=== PATIENT | male | born 1965 | race Two or more races ===

== ENCOUNTER → 2017-12-27 | Day surgery (SDC) | payer MEDICAID ==
[~2017-12-27] MED LIST: BUPIVACAINE 0.5% 30 ML SDV ONE; CISATRACURIUM BESYLATE 20 MG/10 ML VIAL IV ONE; DEXAMETHASONE 4 MG/ML VIAL ONE; GLYCOPYRROLATE 0.2 MG/1 ML VIAL ONE; HEPARIN 10,000 UNIT/10 ML MDV (1,000 UNIT/ML) ONE; HEPARIN 50,000 UNIT/10 ML VIAL ONE; HYDROmorphONE/DILAUDID 2 MG/ML INJ IVP PRN; LABETALOL HCL 5 MG/ML 20 ML MDV IVP PRN; LIDOCAINE 1% 300 MG/30 ML SDV ONE; MIDAZOLAM 2 MG/2 ML VIAL IVP ONE; NALOXONE HCL 0.4 MG/ML INJ IVP PRN; NEOSTIGMINE METHYLSULFATE 5 MG/5 ML SYR ONE; NS 1,000 ML IV ONE; ONDANSETRON 4 MG/2 ML VIAL IVP PRN; ONDANSETRON 4 MG/2 ML VIAL ONE; PAPAVERINE HCL 60 MG/2 ML SDV ONE; PHENYLEPHRINE HCL 100 MCG/ML SYR ONE; PROPOFOL 200 MG/20 ML VIAL ONE; PROPOFOL/EMULSION 500 MG/50 ML BOTTLE IV ONE; PROTAMINE SULFATE 50 MG/5 ML VIAL IVP ONE; THROMBIN (BOVINE) 20,000 UNIT SPRAY TP ONE; THROMBIN (BOVINE) 5,000 UNIT VIAL TP ONE; ceFAZolin 2 GM/DEXTROSE 100 ML IV ONE; ePHEDrine SULFATE 25 MG/5 ML SYR ONE; fentaNYL 100 MCG/2 ML INJ IVP PRN; fentaNYL 100 MCG/2 ML INJ ONE
[2017-12-27 06:19] LABS: PLATELET COUNT 138 10^3/uL (150-400)
--- NOTE | 2017-12-27 07:07 | PDANEPAE ---
ANE History of Present Illness Left hand AV fistula, IJ dialysis catheter ANE Past Medical History - Cardiovascular History Hx Hypertension: Yes Hx Arrhythmias: No Hx Chest Pain: No Hx Coronary Artery / Peripheral Vascular Disease: No Hx CHF / Valvular Disease: No Hx Palpitations: No - Pulmonary History Hx COPD: No Hx Asthma/Reactive Airway Disease: No Hx Recent Upper Respiratory Infection: No Hx Oxygen in Use at Home: No Hx Sleep Apnea: No Sleep Apnea Screening Result - Last Documented: Positive Pulmonary History Comment: RAMON triggers - Neurologic History Hx Cerebrovascular Accident: No Hx Seizures: No Hx Dementia: No Neurologic History Comment: eye neuropathy - Endocrine History Hx Diabetes: Yes Hypothyroid: No Hyperthyroid: No Obesity: no Endocrine History Comment: DM II - Renal History Hx Renal Disorders: Yes Renal History Comment: renal neuropathy - end stage renal disease - Liver History Hx Hepatic Disorders: No - Neurological & Psychiatric Hx Hx Neurological and Psychiatric Disorders: No - Cancer History Hx Cancer: No - Congenital Disorder History Hx Congenital Disorders: No - GI History GERD: no Hx Gastrointestinal Disorders: No - Other Health History Other Health History: pt is legally blind, wears glasses for reading - Chronic Pain History Chronic Pain: No - Surgical History Prior Surgeries: hernia. left eye surgery for neuropathy ANE Review of Systems Review of Systems: - Exercise capacity METS (RN): 4 METS ANE Patient History - Allergies Allergies/Adverse Reactions: No Known Allergies Allergy (Verified 12/25/17 11:06) - Home Medications Home Medications: Atorvastatin Calcium [Lipitor 40 mg (*)] 40 mg PO DAILY 12/25/17 [Last Taken ] Carvedilol [Coreg (*)] 25 mg PO BIDMEAL 12/25/17 [Last Taken 12/27/17] Cholecalciferol Vit D3 [Vitamin D3 (*)] 2,000 units PO DAILY 12/25/17 [Last Taken 12/26/17] Furosemide [Lasix 20 MG (*)] 20 mg PO DAILY 12/25/17 [Last Taken 12/26/17] Losartan Potassium [Cozaar 50 mg (*)] 50 mg PO HS 12/25/17 [Last Taken 12/26/17] Losartan Potassium [Cozaar 50 mg (*)] 100 mg PO DAILY 12/25/17 [Last Taken 12/27 04:00] - NPO status NPO Since - Liquids (Date): 12/27/17 NPO Since - Liquids (Time): 04:00 NPO Since - Solids (Date): 12/26/17 NPO Since - Solids (Time): 18:00 - Anes Hx Anes Hx: post operative nausea - Smoking Hx Smoking Status: Never smoked - Alcohol Use Alcohol Use: None - Family Anes Hx Family Anes Hx: none Family Hx Anesthesia Complications: none ANE Labs/Vital Signs - Labs Result Diagrams: 12/27/17 06:09 12/27/17 06:09 - Vital Signs Blood Pressure: 192/97 Heart Rate: 74 Respiratory Rate: 16 O2 Sat (%): 99 Height: 170.18 cm Weight: 78.471 kg ANE Physical Exam - Airway Neck exam: decreased ROM Mouth exam: poor dentition - Pulmonary Pulmonary: no respiratory distress, no rales or rhonchi - Cardiovascular Cardiovascular: regular rate and rhythym, no murmur, rub, or gallop - ASA Status ASA Status: IV ANE Anesthesia Plan Anesthesia Plan: general endotracheal anesthesia
--- NOTE | 2017-12-27 07:20 | PDHPUP ---
History & Physical Update H&P update statement: This history and physical update is based on an assessment of the patient which was completed after admission or registration (within 24 hours), but prior to the surgery/procedure. H&P update: H&P reviewed & patient examined, no change in patient's condition since H&P completed
--- NOTE | 2017-12-27 10:36 | POSTOPPROG ---
Post Op Note Date of Operation: 12/27/17 Surgeon: Hardik Campbell Ammonia Still Operator: Asya Anesthesiologist: Carlo Anesthesia: GET(General Endotracheal) Pre-op Diagnosis: ESRD Post-op Diagnosis: same Indication: same Procedure: LUE radiocephalic AVF Findings: +thrill Inf/Abcess present in the surg proc area at time of surgery?: No Depth: Superfical (Skin SQ) EBL: Minimal
[2017-12-27 12:50] VITALS: BP 147/86
--- NOTE | 2017-12-27 13:21 | POSTANESTH ---
Post Anesthetic Evaluation Cardiovascular Status: Similar to Pre-Op Cond Respiratory Status: Normal, Stable Level of Consciousness/Mental Status: Can Participate in Eval Pain Control: Adequate, Prn Tx Ordered Nausea/Vomiting Control: Adequate, Prn Tx Ordered Complications Possibly Related to Anesthesia: None Noted (Episode of nausea treated)
--- NOTE | 2017-12-27 13:29 | GOP ---
DATE OF OPERATION: 12/27/2017 SURGEON: Hardik Campbell MD RN CONCURRENT REVIEW: Melida Sky NP. ANESTHESIOLOGIST: Dr. Matos. PREOPERATIVE DIAGNOSIS: Chronic renal failure. POSTOPERATIVE DIAGNOSIS: Chronic renal failure. PROCEDURE PERFORMED: Left arm ultrasound vein mapping and left radiocephalic arteriovenous fistula. FINDINGS: Patient was found to have a good cephalic vein at the distal forearm and wrist, cephalic v ein was open in the upper arm but was somewhat smaller, had a good radial pulse with noncalcified art herlinda. Elected to proceed with a radiocephalic AV fistula even though he is diabetic. DESCRIPTION OF PROCEDURE: The patient was taken to the operating room where he received a satisfacto ry general endotracheal anesthesia by Dr. Matos. He was placed in supine position. The left arm ou tstretched on an arm board, prepped and draped in the usual sterile fashion. A short incision was ma de over the radial artery and dissection extended down through the fascia. The radial artery was dis sected free and controlled with vessel loops. The cephalic vein was then dissected free from underne ath the radial flap and retracted over to the artery. The patient was systemically heparinized. A s fredis-to-side anastomosis was made between the vein and the artery, creating an 8 mm anastomosis. Flow was first established through the AV fistula then back down the hand. The suture line appeared to b e hemostatic. Other hemostasis was obtained in the wound. The heparin was reversed with protamine. The distal vein was then doubly ligated and divided and the AV fistula was in good position without undue kinking or tension. The wound was irrigated and infiltrated with 0.5% Marcaine. Some topical thrombin was placed in the wound and it was closed with some 3-0 Vicryl subcutaneous sutures and a 4- 0 Monocryl subcuticular stitch. He tolerated the procedure well and was taken to recovery room in go od condition. There was minimal blood loss. No complications. Copy requested to: Dr. Lai /[id number]/MODL
--- NOTE | 2017-12-27 13:29 | GOP ---
DATE OF OPERATION: 12/27/2017 SURGEON: Hardik Campbell MD PREOPERATIVE DIAGNOSIS: Chronic renal failure. POSTOPERATIVE DIAGNOSIS: Chronic renal failure. PROCEDURE PERFORMED: Right internal jugular palindrome tunneled catheter. FINDINGS: The patient was found to have good flow and position of the catheter. DESCRIPTION OF PROCEDURE: The patient was taken to the operating room where he received a satisfacto ry general endotracheal anesthesia by Dr. Matos, placed in supine position, prepped and draped in th e usual sterile fashion, was then placed in Trendelenburg using ultrasound guidance. A single stick was made in the right internal jugular vein. A guidewire was introduced, position was confirmed with fluoroscopy. A subcu incision was made on the anterior chest wall and the Palindrome catheter was t unneled up over the clavicle to the insertion site. A series of dilators were passed over the guidew kassandra, and the catheter was then introduced into the right atrium under fluoroscopic control. The cath eter was slightly too long, but was manipulated and repositioned until it was functioning very well w ith no kinks or problems. The catheter was secured to the exit site with 3-0 Prolene sutures. The e ntrance site was closed with a 3-0 Vicryl subcutaneous suture and 3-0 Prolene mattress sutures. Woun ds were infiltrated with 0.5% Marcaine. He tolerated procedure well, was taken to recovery room in good condition. No complications. Copy requested to: Dr. Lai /[id number]/MODL
== END ==
LOC: F2W 05:28 → FSGY 05:28 → UNDOADMOB 05:28 → EDSTATUS 07:15 → UNDODISOB 12:49
PROVIDERS: ATTEND Surgery
DX: N18.5 Chronic kidney disease, stage 5 (principal); E11.22 Type 2 diabetes mellitus with diabetic chronic kidney disease; I12.0 Hypertensive chronic kidney disease with stage 5 chronic kidney disease or end stage renal disease
CPT/HCPCS: C1750; J0690; J1100; J1642; J1644; J2250; J2370; J2405; J2440; J2704; J2710; J2720; J3010

== ENCOUNTER 2018-02-04 11:51 | Day surgery (SDC) | payer MEDICAID ==
[2018-02-04] MEDS ORDERED: ceFAZolin 2 GM/DEXTROSE 100 ML IV ONE (12:25)
[2018-02-04] MEDS ORDERED: NS 1,000 ML IV ONE (12:26)
[2018-02-04] MEDS ORDERED: THROMBIN (BOVINE) 5,000 UNIT VIAL TP ONE (12:56)
[2018-02-04] MEDS ORDERED: BUPIVACAINE 0.5% 30 ML SDV ONE (12:56)
[2018-02-04] MEDS ORDERED: PROTAMINE SULFATE 50 MG/5 ML VIAL IVP ONE (12:56)
[2018-02-04] MEDS ORDERED: PAPAVERINE HCL 60 MG/2 ML SDV ONE (12:57)
[2018-02-04] MEDS ORDERED: LIDOCAINE 1% 300 MG/30 ML SDV ONE (12:57)
[2018-02-04] MEDS ORDERED: ALBUTEROL 3 ML DEYVIAL IH PRN (13:01)
[2018-02-04] MEDS ORDERED: fentaNYL 100 MCG/2 ML INJ IVP PRN (13:01)
[2018-02-04] MEDS ORDERED: NALOXONE HCL 0.4 MG/ML INJ IVP PRN (13:01)
[2018-02-04] MEDS ORDERED: ONDANSETRON 4 MG/2 ML VIAL IVP PRN (13:01)
[2018-02-04] MEDS ORDERED: ACETAMINOPHEN 500 MG TAB PO PRN (13:01)
--- NOTE | 2018-02-04 13:01 | PDANEPAE ---
ANE History of Present Illness L Arm AV Fistula revision ANE Past Medical History - Cardiovascular History Hx Hypertension: Yes Hx Arrhythmias: No Hx Chest Pain: No Hx Coronary Artery / Peripheral Vascular Disease: No Hx CHF / Valvular Disease: No Hx Palpitations: No - Pulmonary History Hx COPD: No Hx Asthma/Reactive Airway Disease: No Hx Recent Upper Respiratory Infection: No Hx Oxygen in Use at Home: No Hx Sleep Apnea: No Sleep Apnea Screening Result - Last Documented: Positive Pulmonary History Comment: RAMON triggers - Neurologic History Hx Cerebrovascular Accident: No Hx Seizures: No Hx Dementia: No Neurologic History Comment: eye neuropathy - Endocrine History Hx Diabetes: Yes Endocrine History Comment: DM II - Renal History Hx Renal Disorders: Yes Renal History Comment: renal neuropathy - end stage renal disease. dialysis m-w - [facility] - Liver History Hx Hepatic Disorders: No - Neurological & Psychiatric Hx Hx Neurological and Psychiatric Disorders: No - Cancer History Hx Cancer: No - Congenital Disorder History Hx Congenital Disorders: No - GI History Hx Gastrointestinal Disorders: No - Other Health History Other Health History: pt is legally blind, wears glasses for reading - Chronic Pain History Chronic Pain: No - Surgical History Prior Surgeries: 12/27/17 RIJ tunneled dialysis cath and Left av fistula with Campbell. hernia. left eye surgery for neuropathy ANE Review of Systems Review of Systems: - Exercise capacity METS (RN): 4 METS ANE Patient History - Allergies Allergies/Adverse Reactions: No Known Allergies Allergy (Verified 02/03/18 15:11) - Home Medications Home Medications: Atorvastatin Calcium [Lipitor 40 mg (*)] 40 mg PO DAILY 12/25/17 [Last Taken 06/19 08:30] Carvedilol [Coreg (*)] 25 mg PO BIDMEAL 12/25/17 [Last Taken 02/04/18 08:30] Cholecalciferol Vit D3 [Vitamin D3 (*)] 2,000 units PO DAILY 12/25/17 [Last Taken 02/03/18] Furosemide [Lasix 20 MG (*)] 20 mg PO DAILY 12/25/17 [Last Taken 02/03/18] Losartan Potassium [Cozaar 50 mg (*)] 50 mg PO HS 12/25/17 [Last Taken 02/03/18] Losartan Potassium [Cozaar 50 mg (*)] 100 mg PO DAILY 12/25/17 [Last Taken 02/04 08:30] - NPO status NPO Since - Liquids (Date): 02/04/18 NPO Since - Liquids (Time): 08:30 NPO Since - Solids (Date): 02/03/18 NPO Since - Solids (Time): 20:30 - Smoking Hx Smoking Status: Never smoked - Family Anes Hx Family Hx Anesthesia Complications: none ANE Labs/Vital Signs - Labs Result Diagrams: 02/04/18 12:25 - Vital Signs Blood Pressure: 171/73 Heart Rate: 72 Respiratory Rate: 18 O2 Sat (%): 99 Height: 170.18 cm Weight: 78.471 kg ANE Physical Exam - Airway Neck exam: FROM Mallampati Score: Class 2 Mouth exam: normal dental/mouth exam - Pulmonary Pulmonary: clear to auscultation - Cardiovascular Cardiovascular: regular rate and rhythym - ASA Status ASA Status: III ANE Anesthesia Plan Anesthesia Plan: GA with mask
[2018-02-04] MEDS ORDERED: PROPOFOL/EMULSION 500 MG/50 ML BOTTLE IV ONE (13:04)
[2018-02-04] MEDS ORDERED: LIDOCAINE 2% 5 ML SDV ONE (13:06)
[2018-02-04] MEDS ORDERED: fentaNYL 100 MCG/2 ML INJ ONE (13:07)
[2018-02-04] MEDS ORDERED: ONDANSETRON 4 MG/2 ML VIAL ONE (13:35)
--- NOTE | 2018-02-04 14:13 | POSTANESTH ---
Post Anesthetic Evaluation Cardiovascular Status: Normal, Stable Respiratory Status: Normal, Stable Level of Consciousness/Mental Status: Can Participate in Eval, Mildly Sleepy, Arousable Pain Control: Adequate, Prn Tx Ordered Nausea/Vomiting Control: Adequate, Prn Tx Ordered Complications Possibly Related to Anesthesia: None Noted
[2018-02-04 15:15] VITALS: BP 164/80
--- NOTE | 2018-02-05 16:14 | GOP ---
DATE OF OPERATION: 02/04/2018 SURGEON: Hardik Campbell MD PREOPERATIVE DIAGNOSIS: Chronic renal failure. POSTOPERATIVE DIAGNOSIS: Chronic renal failure. PROCEDURE PERFORMED: Arteriovenous fistula revision with ligation of collateral veins and ultrasound vein mapping of the left arm. FINDINGS: 2 LARGE COLLATERALS DESCRIPTION OF PROCEDURE: The patient was taken to the operating room where he received a satisfactory general endotracheal anesthesia by Dr. Robles. He was placed in supine position with the left arm outstretched on an arm board, prepped and draped in usual sterile fashion. His radiocephalic AV fistula was examined with the ultrasound and multiple collaterals were identified. There were 2 significant collaterals with retrograde flow. These were isolated with the ultrasound. Short incision was then made parallel to the main tract of the fistula and these 2 collaterals were dissected free and doubly ligated with silk ties without any compromise to the fistula, and in fact, creating a stronger fistula flow. Wounds were infiltrated with 0.5% Marcaine and closed with 4-0 Monocryl subcuticular sutures. He tolerated the procedure well. Blood loss negligible. No complications. He was taken to the recovery room in good condition. /[id number]/MODL MTDD
== END 2018-02-04 15:16 | disposition home or self-care (01) ==
LOC: FSGY 11:51
PROVIDERS: ATTEND Surgery
DX: N18.5 Chronic kidney disease, stage 5 (principal); E11.39 Type 2 diabetes mellitus with other diabetic ophthalmic complication
CPT/HCPCS: J0690; J1644; J2405; J2440; J2704; J2720; J3010